=== PATIENT | male | born 1975 | race Caucasian/White ===

== ENCOUNTER → 2017-02-25 | Outpatient (CLI) | payer OTHER | END | disposition home or self-care (01) | LOC: EKG 02-08 13:00 | DX: I27.20 Pulmonary hypertension, unspecified (principal) | CPT/HCPCS: 93306 ==

== ENCOUNTER 2017-08-11 07:00 | Day surgery (SDC) | payer OTHER ==
[~2017-08-11] VITALS: Ht 182.9 cm; Wt 198.2 kg
[~2017-08-11 07:00] MED LIST: BUMEX1 MG PO; FISH OIL 1,0001 EAC7 PO; FLONASE SENSIM9.9 ML BOTH NARES; GLUCOPHAGE1000 MG PO; LEVEMIR100 UNIT/2 SC; LISINOPRIL20 MG PO; LORTAB 7.5-3251 EACH PO; LOVASTATIN40 MG PO; METAXALL800 MG PO; MULTIPLE VITAM1 EACH PO; NAPROXEN SODIU220 M1 PO; OMEPRAZOLE40 M1 PO; PROAIR HFA8.5 GM IH; PROBIOTIC1 EAC1 PO; TOPAMAX50 MG PO; VERAPAMIL HCL180 MG PO; VICTOZA0.6 MG/0.1 SC; ZANAFLEX4 M1 PO; ZYRTEC10 M3 PO
== END 2017-08-11 08:45 | disposition home or self-care (01) ==
LOC: PAIN 07:00 → SDC 07:30 → PAIN 08:45
PROVIDERS: Anesthesiology Pain Medicine
DX: M53.3 Sacrococcygeal disorders, not elsewhere classified (principal); M46.1 Sacroiliitis, not elsewhere classified; M54.16 Radiculopathy, lumbar region; M54.5 Low back pain; E66.01 Morbid (severe) obesity due to excess calories; Z68.43 Body mass index [BMI] 50.0-59.9, adult; I10 Essential (primary) hypertension; E11.9 Type 2 diabetes mellitus without complications; K21.9 Gastro-esophageal reflux disease without esophagitis; J45.909 Unspecified asthma, uncomplicated; G47.33 Obstructive sleep apnea (adult) (pediatric); Z87.891 Personal history of nicotine dependence; Z79.4 Long term (current) use of insulin; Z79.891 Long term (current) use of opiate analgesic
CPT/HCPCS: 82948; J1030; J2250; S0020

== ENCOUNTER → 2017-10-24 | Outpatient (CLI) | payer OTHER | END | disposition home or self-care (01) | LOC: RAD 08:30 | DX: N28.89 Other specified disorders of kidney and ureter (principal); M54.5 Low back pain | CPT/HCPCS: 74176 ==

== ENCOUNTER → 2017-11-04 | Outpatient (CLI) | payer OTHER | END | disposition home or self-care (01) | LOC: RAD 07:37 | DX: N28.89 Other specified disorders of kidney and ureter (principal) | CPT/HCPCS: 74177 ==